=== PATIENT | male | born 1975 | race Caucasian/White ===

== ENCOUNTER 2021-03-23 07:59 | Day surgery (SDC) | payer OTHER ==
[~2021-03-23] VITALS: Ht 175.3 cm; Wt 92.5 kg
[2021-03-23] MEDS ORDERED: Adderall Xr 2020 MG PO (08:42)
[2021-03-23] MEDS ORDERED: ROSUVASTATIN CA10 MG PO (08:42)
== END 2021-03-23 10:26 | disposition home or self-care (01) ==
LOC: ORSCSDS 07:59
PROVIDERS: Internal Medicine Gastroenterology
PROC: 0DBK8ZX Excision of Ascending Colon, Via Natural or Artificial Opening Endoscopic, Diagnostic (ICD-10-PCS; principal; 2021-03-23 09:45)
PROC: 0DBL8ZX Excision of Transverse Colon, Via Natural or Artificial Opening Endoscopic, Diagnostic (ICD-10-PCS; principal; 2021-03-23 09:45)
DX: K62.5 Hemorrhage of anus and rectum (principal); R19.4 Change in bowel habit; D12.3 Benign neoplasm of transverse colon; D12.2 Benign neoplasm of ascending colon; K57.30 Diverticulosis of large intestine without perforation or abscess without bleeding; K64.8 Other hemorrhoids; Z79.899 Other long term (current) drug therapy
CPT/HCPCS: 88305; J2704; J7120